=== PATIENT | female | born 1990 | race Hispanic/Latino ===

== ENCOUNTER 2018-07-15 21:29 | Emergency (ER) | payer BC ==
[2018-07-15] MEDS ORDERED: ALBUTEROL 2.5 MG/3 ML NEB SOL ONE (22:36)
[2018-07-15] MEDS ORDERED: IBUPROFEN 400 MG TAB ONE (22:36)
[2018-07-15] MEDS ORDERED: DIPHENHYDRAMINE 12.5MG/5ML LIQ ONE (22:37)
[2018-07-15] MEDS ORDERED: ACETAMINOPHEN 500 MG TAB ONE (22:37)
[2018-07-15] MEDS ORDERED: IPRATROPIUM BROM 0.5MG/2.5ML ONE (22:37)
[2018-07-15] MEDS ORDERED: IBUPROFEN 200 MG TAB PO ONE (22:37)
--- NOTE | 2018-07-16 00:02 | EDPHYS ---
Physician Documentation [facility] Name: Mia Watts Age: 28 yrs Sex: Female : 1990 Arrival Date: 07/15/2018 Time: 21:32 Bed 13 Private MD: ED Physician Timothy Quigley HPI: 07/16 00:08 This 28 yrs old Female presents to ER via Ambulatory with complaints of Sore wa Throat, Productive Cough, Breathing Difficulty. 00:08 The patient presents with sore throat, cough and congestion. The patient describes wa throat pain as achy. Onset: The symptoms/episode began/occurred yesterday. Severity of symptoms: At their worst the symptoms were moderate, in the emergency department the symptoms are unchanged. Modifying factors: The symptoms are alleviated by nothing, the symptoms are aggravated by swallowing, cough. Associated signs and symptoms: Pertinent positives: cough, flu-like symptoms, rhinorrhea, shortness of breath Sore throat Pertinent negatives diarrhea, dysphagia, vomiting. The patient has not experienced similar symptoms in the past. The patient has not recently seen a physician. 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 - Social history:: Smoking status: Patient/guardian denies using tobacco. - Ebola Screening: : Patient denies travel to an Ebola-affected area in the 21 days before illness onset. - Family history:: not pertinent. - Hospitalizations: : No recent hospitalization is reported. ROS: 07/16 00:09 Eyes: Negative for injury, pain, redness, and discharge, Neck: Negative for injury, wa pain, and swelling, Cardiovascular: Negative for chest pain, palpitations, and edema, Abdomen/GI: Negative for abdominal pain, nausea, vomiting, diarrhea, and constipation, Back: Negative for injury and pain, : Negative for injury, bleeding, discharge, and swelling, MS/Extremity: Negative for injury and deformity, Skin: Negative for injury, rash, and discoloration, Neuro: Negative for headache, weakness, numbness, tingling, and seizure. Constitutional: Positive for body aches, chills. ENT: Positive for rhinorrhea, sore throat, Negative for ear pain, hoarseness. Respiratory: Positive for cough, with no reported sputum, shortness of breath, at rest. All other systems are negative. Exam: 00:10 Constitutional: This is a well developed, well nourished patient who is awake, alert, wa and in no acute distress. Head/Face: Normocephalic, atraumatic. Eyes: Pupils equal round and reactive to light, extra-ocular motions intact. Lids and lashes normal. Conjunctiva and sclera are non-icteric and not injected. Cornea within normal limits. Periorbital areas with no swelling, redness, or edema. Neck: Trachea midline, no thyromegaly or masses palpated, and no cervical lymphadenopathy. Supple, full range of motion without nuchal rigidity, or vertebral point tenderness. No Meningismus. Chest/axilla: Normal chest wall appearance and motion. Nontender with no deformity. No lesions are appreciated. Cardiovascular: Regular rate and rhythm with a normal S1 and S2. No gallops, murmurs, or rubs. Normal PMI, no JVD. No pulse deficits. Abdomen/GI: Soft, non-tender, with normal bowel sounds. No distension or tympany. No guarding or rebound. No evidence of tenderness throughout. Back: No spinal tenderness. No costovertebral tenderness. Full range of motion. Skin: Warm, dry with normal turgor. Normal color with no rashes, no lesions, and no evidence of cellulitis. MS/ Extremity: Pulses equal, no cyanosis. Neurovascular intact. Full, normal range of motion. Neuro: Awake and alert, GCS 15, oriented to person, place, time, and situation. Cranial nerves II-XII grossly intact. Motor strength 5/5 in all extremities. Sensory grossly intact. Cerebellar exam normal. Normal gait. Psych: Awake, alert, with orientation to person, place and time. Behavior, mood, and affect are within normal limits. 00:10 ENT: External ear(s): are unremarkable, Nose: noted sniffling. clear drainage, Posterior pharynx: is normal. Vital Signs: 07/15 21:54 BP 113 / 82; Pulse 99; Resp 18; Temp 98.8; Pulse Ox 98% on R/A; Weight 89.36 kg (R); aj1 Height 5 ft. 2 in. (157.48 cm) (R); Pain 0/10; 23:07 BP 102 / 66; Pulse 96; Resp 18; Pulse Ox 99% on R/A; mt 23:48 BP 113 / 62; Pulse 95; Resp 18; Pulse Ox 97% on R/A; mt 07/16 00:01 BP 113 / 62; Pulse 90; Resp 18; Pulse Ox 98% on R/A; ea 07/15 21:54 Body Mass Index 36.03 (89.36 kg, 157.48 cm) aj1 MDM: 07/15 22:08 Patient medically screened. ks 07/16 00:11 Differential diagnosis: pharyngitis, viral syndrome r/o pna. Data reviewed: vital wa signs, nurses notes. Test interpretation: by ED physician or midlevel provider: CXR nml. flu screen negative. Response to treatment: the patient's symptoms have markedly improved after treatment. ED course: improved with ED interventions. will d/c with symptomatic treatment modalities and close f/u with PMD. 07/15 22:26 Order name: Flu ks 07/15 22:26 Order name: Chest Pa And Lat (2 Views) XRAY ks Administered Medications: 07/15 22:36 Drug: Motrin 600 mg Route: PO; ea 23:04 Follow up: Response: No adverse reaction ea 22:36 Drug: Tylenol 1000 mg Route: PO; ea 23:04 Follow up: Response: No adverse reaction 22:36 Drug: Benadryl 12.5 mg Route: PO; ea 23:05 Follow up: Response: No adverse reaction ea 23:03 Drug: Albuterol 2.5 mg Route: Inhalation; ea 23:03 Drug: AtroVENT Aerosol 0.5 mg Route: Inhalation; ea Disposition: 07/16/18 00:01 Discharged to Home. Impression: Acute Viral Upper Respiratory Infection. - Condition is Stable. - Discharge Instructions: Upper Respiratory Infection, Adult, [id number]. - Prescriptions for Albuterol Sulfate 2.5 mg /3 mL (0.083 %) Inhalation Solution for Nebulization - inhale 1 unit by NEBULIZATION route every 8 hours As needed; 1 box. - Medication Reconciliation Form, Thank You Letter, Antibiotic Education, Prescription Opioid Use form. - Follow up: Private Physician; When: 2 - 3 days; Reason: Recheck today's complaints. - Problem is new. - Symptoms have improved. - Notes: take tylenol, motrin and benadryl as needed for your symptoms. use your albuterol via nebulizer for cough and or congestion. see your doctor within 2-3 days if worsenign concerns Signatures: Dispatcher [employer] EDAR Deysi Resendiz RN RN aj1 Dianna Galeano RN RN ea Timothy Quigley MD MD wa Corrections: (The following items were deleted from the chart) 07/16 00:09 00:01 07/16/2018 00:01 Discharged to Home. Impression: Acute Viral Upper Respiratory ea Infection. Condition is Stable. Forms are Medication Reconciliation Form, Thank You Letter, Antibiotic Education, Prescription Opioid Use. Follow up: Private Physician; When: 2 - 3 days; Reason: Recheck today's complaints. Problem is new. Symptoms have improved. wa
--- NOTE | 2018-07-16 00:02 | ER ---
Nurse's Notes [facility] Name: Mia Watts Age: 28 yrs Sex: Female : 1990 Arrival Date: 07/15/2018 Time: 21:32 Bed 13 Private MD: Diagnosis: Acute Viral Upper Respiratory Infection Presentation: 07/15 21:51 Presenting complaint: Patient states: She started sneezing yesterday, and now she has aj1 nasal congestion, sore throat, non-productive and some shortness of breath. Reports generalized body aches, but denies pain otherwise. Denies fever. Transition of care: patient was not received from another setting of care. Onset of symptoms was July 14, 2018. Risk Assessment: Do you want to hurt yourself or someone else? Patient reports no desire to harm self or others. Initial Sepsis Screen: Does the patient meet any 2 criteria? HR > 90 bpm. No. Patient's initial sepsis screen is negative. Does the patient have a suspected source of infection? Yes: Productive cough/pneumonia. Care prior to arrival: None. 21:51 Method Of Arrival: Ambulatory aj 21:51 Acuity: ROMULO 4 aj1 Triage Assessment: 21:54 General: Appears in no apparent distress. uncomfortable, Behavior is calm, cooperative, aj1 appropriate for age. Pain: Denies pain. EENT: Reports nasal congestion nasal discharge sore throat. Neuro: Level of Consciousness is awake, alert, obeys commands. Cardiovascular: Patient's skin is warm and dry. Respiratory: Airway is patent Respiratory effort is even, unlabored, Respiratory pattern is regular, symmetrical. 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 - Social history:: Smoking status: Patient/guardian denies using tobacco. - Ebola Screening: : Patient denies travel to an Ebola-affected area in the 21 days before illness onset. - Family history:: not pertinent. - Hospitalizations: : No recent hospitalization is reported. Screenin:11 Abuse screen: Denies threats or abuse. Nutritional screening: No deficits noted. ea Tuberculosis screening: No symptoms or risk factors identified. Fall Risk None identified. Assessment: 22:09 General: Appears uncomfortable, Behavior is calm, cooperative, appropriate for age. ea Pain: Complains of pain in generalized body pain Quality of pain is described as heavy, Pain began 1 day ago. Neuro: Level of Consciousness is awake, alert, obeys commands, Oriented to person, place, time, situation. Cardiovascular: Heart tones S1 S2 present Patient's skin is warm and dry. Respiratory: Airway is patent Respiratory effort is even, unlabored, Respiratory pattern is regular, symmetrical, Breath sounds are clear bilaterally. Parent/caregiver reports the patient having cough that is non-productive, persistent. GI: No signs and/or symptoms were reported involving the gastrointestinal system. : No signs and/or symptoms were reported regarding the genitourinary system. EENT: Throat is pink Reports nasal congestion. Derm: Skin is pink, warm \T\ dry. 23:30 Reassessment: Patient and/or family updated on plan of care and expected duration. Pain ea level reassessed. Patient is alert, oriented x 3, equal unlabored respirations, skin warm/dry/pink. Patient states symptoms have improved. 07/16 00:08 Reassessment: Patient and/or family updated on plan of care and expected duration. Pain ea level reassessed. Patient is alert, oriented x 3, equal unlabored respirations, skin warm/dry/pink. Discharge instructions given to patient, verbalized the understanding of instructions. Patient states feeling better. Patient states symptoms have improved. Vital Signs: 07/15 21:54 BP 113 / 82; Pulse 99; Resp 18; Temp 98.8; Pulse Ox 98% on R/A; Weight 89.36 kg (R); aj1 Height 5 ft. 2 in. (157.48 cm) (R); Pain 0/10; 23:07 BP 102 / 66; Pulse 96; Resp 18; Pulse Ox 99% on R/A; mt 23:48 BP 113 / 62; Pulse 95; Resp 18; Pulse Ox 97% on R/A; mt 07/16 00:01 BP 113 / 62; Pulse 90; Resp 18; Pulse Ox 98% on R/A; ea 07/15 21:54 Body Mass Index 36.03 (89.36 kg, 157.48 cm) aj1 ED Course: 07/15 21:32 Patient arrived in ED. al2 21:54 Triage completed. aj1 22:07 Dianna Galeano, RN is Primary Nurse. ea 22:08 Timothy Quigley MD is Attending Physician. wa 22:11 Patient has correct armband on for positive identification. Bed in low position. Call ea light in reach. Side rails up X 1. 22:11 Arm band placed on right wrist. Patient placed in an exam room, on a stretcher, on ea pulse oximetry. 22:43 X-ray completed. Patient tolerated procedure well. bb2 22:44 Chest Pa And Lat (2 Views) XRAY In Process Unspecified. EDMS 07/16 00:00 No provider procedures requiring assistance completed. Patient did not have IV access ea during this emergency room visit. Administered Medications: 07/15 22:36 Drug: Motrin 600 mg Route: PO; ea 23:04 Follow up: Response: No adverse reaction ea 22:36 Drug: Tylenol 1000 mg Route: PO; ea 23:04 Follow up: Response: No adverse reaction ea 22:36 Drug: Benadryl 12.5 mg Route: PO; ea 23:05 Follow up: Response: No adverse reaction ea 23:03 Drug: Albuterol 2.5 mg Route: Inhalation; ea 23:03 Drug: AtroVENT Aerosol 0.5 mg Route: Inhalation; ea Outcome: 07/16 00:01 Discharge ordered by . wv 00:09 Discharged to home ambulatory. ea 00:09 Condition: improved 00:09 Discharge instructions given to patient, Instructed on discharge instructions, follow up and referral plans. medication usage, Demonstrated understanding of instructions, follow-up care, medications, Prescriptions given X 1. 00:09 Patient left the ED. ea Signatures: Dispatcher [employer] EDMS Deysi Resendiz, MARIA ALEJANDRA RN Anabel Hung mt, Elena, RN Timothy Rivas ea, MD MD wa Bock, Brittany bb2 Love, Angelica al2
--- NOTE | 2018-07-16 08:20 | RAD REPORT ---
EXAM DESCRIPTION: RAD - Chest Pa And Lat (2 Views) - 07/15/2018 10:47 pm CLINICAL HISTORY: Cough, sore throat, intermittent shortness of breath COMPARISON: None. TECHNIQUE: PA and lateral views of the chest were obtained. FINDINGS: The lungs are clear of a consolidation or mass. Interstitial markings are prominent, more so in the left base. Baseline for the patient is unknown. No peribronchial thickening. Heart size is normal and central vasculature is within normal limits. No pleural effusion or pneu mothorax seen. No acute bony finding noted. No aortic abnormality. IMPRESSION: Baseline examination suspicious for left lung base interstitial pneumonia.
== END 2018-07-16 00:09 | disposition home or self-care (01) ==
LOC: ER 21:29
DX: J06.9 Acute upper respiratory infection, unspecified (principal); E03.9 Hypothyroidism, unspecified
CPT/HCPCS: 71046; 87804; 99284

== ENCOUNTER 2019-11-28 16:04 | Emergency (ER) | payer BC ==
--- OUTSIDE RECORDS SUMMARY | 2019-11-28 16:06 | XMS REPORT ---
:1990 [facility] Address [address] [place] [address] Dr. Donald [address] [place] [id number] Care Team Providers Name Role Phone Unavailable Unavailable Unavailable Problems This patient has no known problems. Allergies, Adverse Reactions, Alerts This patient has no known allergies or adverse reactions. Medications This patient has no known medications.
--- OUTSIDE RECORDS SUMMARY | 2019-11-28 16:07 | XMS REPORT | Summary of Care ---
:1990 Author Organization [facility] Address [address] [place] [address] Care Team Providers Name Role Phone Karlene Morris MD Primary Care Provider Encounter Details Date Type Department Care Team Description 11/25/2019 Patient Secure [facility] Pediatric Karlene Morris and Adult Primary MD [facility]- [address] [place] [address] , [facility] [address] [place] [address] [place] [phone] [address] [phone] Allergies No Known Allergiesdocumented as of this encounter (statuses as of 11/25/2019) Medications Medication Sig Dispensed Refills Start Date End Date Status montelukast 10 mg Take 1 tablet by 90 tablet 3 04/06/2019 Active tabletIndications: mouth at Dermatographism, CRP bedtime. elevated cholestyramine 4 gram Take 1 Packet by 120 Packet 3 04/21/2019 Active powderIndications: mouth 4 (four) Dermatographism, times daily. 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 tabletIndications: Acquired hypothyroidism documented as of this encounter (statuses as of 11/25/2019) Active Problems Problem Noted Date Pain in joint, multiple sites 05/06/2018 Fatigue, unspecified type 05/06/2018 CRP elevated 05/06/2018 Immunization counseling 05/06/2018 Sleep disturbance 05/06/2018 Acquired hypothyroidism Overview: 2014, dx after of 2nd son. documented as of this encounter (statuses as of 11/25/2019) Immunizations Name Administration Dates Next Due Influenza Virus Vaccine 08/18/2018, 08/18/2017 documented as of this encounter Social History Tobacco Use Types Packs/Day Years Used Date Never Smoker Smokeless Tobacco: Never Used Alcohol Use Drinks/Week oz/Week Comments No Sex Assigned at Date Recorded Not on file Job Start Date Occupation Industry Not on file Not on file Not on file Travel History Travel Start Travel End No recent travel history available. documented as of this encounter Last Filed Vital Signs Not on filedocumented in this encounter Plan of Treatment Date Type Specialty Care Team Description 12/01/2019 Office Visit Family Medicine Rashaad Cooley MD [address] [place] [address] [address] [place], [place] [address] 12/14/2019 Office Visit Obstetrics & Gynecology Irais Drummond MD [address] [place] [address] [address] [place], [place] [address] 12/14/2019 Office Visit Internal Medicine Karlene Morris MD [address] [place] [address] [address] [place], [place] [address] Health Maintenance Due Date Last Done Comments VARICELLA VACCINES (1 of 2 - 1989 2-dose childhood series) DTaP,Tdap,and Td Vaccines (1 1999 - Tdap) INFLUENZA VACCINE (#1) 2019 08/18/2018, 08/18/2017 PAP SMEAR 11/26/2021 11/26/2018, 01/24/2016 (Previously completed) PNEUMOCOCCAL 0-64 YEARS Aged Out No longer eligible based COMBINED SERIES on patient's age to complete this topic documented as of this encounter Results Not on filedocumented in this encounter Insurance Payer Benefit Plan Subscriber ID Effective Dates Phone Address Type / Group [facility] [id number] 2018-Saida [phone] [address] PPO/POS [place] - OUT OF t 7 [id number] [place] [address] documented as of this encounter
--- OUTSIDE RECORDS SUMMARY | 2019-11-28 16:07 | XMS REPORT | Summary of Care ---
:1990 Author Organization [facility] - [facility] Address [address] [place] [address] Care Team Providers Name Role Phone Karlene Morris MD Primary Care Provider Reason for Visit Reason Comments Refill Request Encounter Details Date Type Department Care Team Description 05/26/[address] [facility] Pediatric and Karlene Morris, Refill Request Adult Primary Care- MD Tony [address] [place] [address] [address] [facility], [address] [place] [address] [place] [address] Allergies No Known Allergiesdocumented as of this encounter (statuses as of 05/26/2019) Medications Medication Sig Dispensed Refills Start Date End Date Status montelukast 10 mg Take 1 tablet 90 tablet 3 04/06/2019 Active tabletIndications: by mouth at Dermatographism, CRP bedtime. elevated cholestyramine 4 Take 1 Packet 120 Packet 3 04/21/2019 Active gram by mouth 4 powderIndications: (four) times Dermatographism, daily. 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 Acquired hypothyroidism documented as of this encounter (statuses as of 05/26/2019) Active Problems Problem Noted Date Pain in joint, multiple sites 05/06/2018 Fatigue, unspecified type 05/06/2018 CRP elevated 05/06/2018 Immunization counseling 05/06/2018 Sleep disturbance 05/06/2018 Acquired hypothyroidism Overview: 2014, dx after of 2nd son. documented as of this encounter (statuses as of 05/26/2019) Immunizations Name Administration Dates Next Due Influenza [...] Treatment Date Type Specialty Care Team Description 06/11/2019 Office Visit Internal Medicine Karlene Morris MD [address] [place] [address] Dr [address] [place] [address] [phone] 12/14/2019 Office Visit Obstetrics & Gynecology Irais Drummond MD [address] [place] [address] [address] [place] [address] [phone] Health Maintenance Due Date Last Done Comments VARICELLA VACCINES (1 of 2 - 2001 13+ 2-dose series) INFLUENZA VACCINE 06/14/2019 08/18/2018, 08/18/2017 DTaP,Tdap,and Td Vaccines (1 11/19/2019 Postponed from 2007 - Tdap) (Insurance / Financial) PAP SMEAR 11/26/2021 11/26/2018, 01/24/2016 (Previously completed) PNEUMOCOCCAL 0-64 YEARS Aged Out No longer eligible based COMBINED SERIES on patient's age to complete this topic documented as of this encounter Results Not on filedocumented in this encounter Visit Diagnoses Diagnosis Acquired hypothyroidism Unspecified hypothyroidism documented in this encounter Insurance Payer Benefit Plan Subscriber ID Effective Dates Phone Address Type / Group [facility] [id number] 2018-Saida [phone] [address] PPO/POS [place] - OUT OF t 7 [id number] [place] [address] documented as of this encounter
--- OUTSIDE RECORDS SUMMARY | 2019-11-28 16:07 | XMS REPORT | Summary of Care ---
:[address] [facility] Address [address] [place] [address] Care Team Providers Name Role Phone Karlene Morris MD Primary Care Provider Encounter Details Date Type Department Care Team Description 11/25/2019 Patient Secure [facility] Pediatric Karlene Morris and Adult Primary MD [facility]- [address] [place] [address] , [facility] [address] [place] [address] [place] [phone] [address] [phone] Allergies No Known Allergiesdocumented as of this [...] unspecified type, CRP elevated, Hives Thyroid, Pork, (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 [place], [place] [address] 12/14/2019 Office Visit Internal Medicine Karlene Morris MD [address] [place] [address] Dr Thapa [address] [place] [address] [phone] Health Maintenance Due Date Last Done Comments [...] Effective Dates Phone Address Type / Group [facility] [id number] 2018-Saida [phone] [address] PPO/POS [place] - OUT OF t 7 [id number] [place] [address] documented as of this encounter
--- NOTE | 2019-11-28 17:05 | EDPHYS ---
Physician Documentation [facility] Name: Mia Watts Age: 29 yrs Sex: Female : 1990 Arrival Date: 11/28/2019 Time: 16:06 Bed 19 Private MD: ED Physician Carlos Magana HPI: 11/28 16:31 This 29 yrs old Female presents to ER via Ambulatory with complaints of Flu snw Symptoms. 16:31 Onset: The symptoms/episode began/occurred suddenly, today. Associated signs and snw symptoms: Pertinent negatives: abdominal pain, shortness of breath, wheezing. Modifying factors: The patient symptoms are alleviated by nothing. The patient has not experienced similar symptoms in the past. The patient has not recently seen a physician. s/s started today . 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 tw2 Historical: - Allergies: 16:25 No Known Allergies; ss - Home Meds: 16:25 [place] Thyroid Oral [Active]; ss - PMHx: 16:25 Hypothyroidism; Sleep Apnea; ss - PSHx: 16:25 None; ss - Immunization history:: Adult Immunizations up to date. - Coronavirus screen:: The patient has NOT traveled to [place] in the past 14 days. Proceed with normal triage process as indicated. - Social history:: Smoking status: Patient denies any tobacco usage or history of. - Ebola Screening: : Patient denies exposure to infectious person Patient denies travel to an Ebola-affected area in the 21 days before illness onset. ROS: 16:30 Eyes: Negative for injury, pain, redness, and discharge, ENT: Negative for injury, snw pain, and discharge, Neck: Negative for injury, pain, and swelling, Cardiovascular: Negative for chest pain, palpitations, and edema, Respiratory: Negative for shortness of breath, cough, wheezing, and pleuritic chest pain, Abdomen/GI: Negative for abdominal pain, nausea, vomiting, diarrhea, and constipation, Back: Negative for injury and pain, : Negative for injury, bleeding, discharge, and swelling, MS/Extremity: Negative for injury and deformity, Skin: Negative for injury, rash, and discoloration, Neuro: Negative for headache, weakness, numbness, tingling, and seizure, Psych: Negative for depression, anxiety, suicide ideation, homicidal ideation, and hallucinations. 16:30 Constitutional: Positive for body aches, chills, fatigue, malaise. Exam: 16:29 Head/Face: Normocephalic, atraumatic. Eyes: Pupils equal round and reactive to light, snw extra-ocular motions intact. Lids and lashes normal. Conjunctiva and sclera are non-icteric and not injected. Cornea within normal limits. Periorbital areas with no swelling, redness, or edema. Neck: Trachea midline, no thyromegaly or masses palpated, and no cervical lymphadenopathy. Supple, full range of motion without nuchal rigidity, or vertebral point tenderness. No Meningismus. Chest/axilla: Normal chest wall appearance and motion. Nontender with no deformity. No lesions are appreciated. Cardiovascular: Regular rate and rhythm with a normal S1 and S2. No gallops, murmurs, or rubs. Normal PMI, no JVD. No pulse deficits. Respiratory: Lungs have equal breath sounds bilaterally, clear to auscultation and percussion. No rales, rhonchi or wheezes noted. No increased work of breathing, no retractions or nasal flaring. Abdomen/GI: Soft, non-tender, with normal bowel sounds. No distension or tympany. No guarding or rebound. No evidence of tenderness throughout. Back: No spinal tenderness. No costovertebral tenderness. Full range of motion. Skin: Warm, dry with normal turgor. Normal color with no rashes, no lesions, and no evidence of cellulitis. MS/ Extremity: Pulses equal, no cyanosis. Neurovascular intact. Full, normal range of motion. Neuro: Awake and alert, GCS 15, oriented to person, place, time, and situation. Cranial nerves II-XII grossly intact. Motor strength 5/5 in all extremities. Sensory grossly intact. Cerebellar exam normal. Normal gait. Psych: Awake, alert, with orientation to person, place and time. Behavior, mood, and affect are within normal limits. 16:29 Constitutional: The patient appears alert, awake, uncomfortable. 16:29 ENT: External ear(s): no acute changes, Ear canal(s): are normal, TM's: are normal, Nose: Nasal mucosa: edematous, Mouth: is normal, Posterior pharynx: is normal, Voice: is normal. Vital Signs: 16:22 BP 117 / 75; Pulse 83; Resp 15; Temp 98.3(TE); Pulse Ox 100% on R/A; Weight 91.17 kg; ss Height 5 ft. 2 in. (157.48 cm); Pain 6/10; 16:22 Body Mass Index 36.76 (91.17 kg, 157.48 cm) ss MDM: 16:22 Patient medically screened. snw 17:07 Data reviewed: vital signs, nurses notes. Data interpreted: Pulse oximetry: on room air snw is 100 %. Interpretation: normal. Counseling: I had a detailed discussion with the patient and/or guardian regarding: the historical points, exam findings, and any diagnostic results supporting the discharge/admit diagnosis, lab results, to return to the emergency department if symptoms worsen or persist or if there are any questions or concerns that arise at home. Special discussion: Based on the history and exam findings, there is no indication for further emergent testing or inpatient evaluation. I discussed with the patient/guardian the need to see the primary care provider for further evaluation of the symptoms. 11/28 16:32 Order name: Flu snw 11/28 16:32 Order name: Strep snw 11/28 17:01 Order name: Influenza Screen (A ; Complete Time: 17:01 EDMS 11/28 17:01 Order name: Group A Streptococcus Rapid Sc; Complete Time: 17:01 EDMS Administered Medications: No medications were administered Disposition: 11/28/19 17:03 Discharged to Home. Impression: Acute upper respiratory infection, unspecified. - Condition is Stable. - Discharge Instructions: Viral Respiratory Infection, Cool Mist Vaporizer. - Prescriptions for orphenadrine citrate 100 mg Oral Tablet Sustained Release - take 1 tablet by ORAL route 2 times per day As needed; 20 tablet. promethazine 25 mg Oral Tablet - take 1 tablet by ORAL route every 6 hours As needed; 20 tablet. - Medication Reconciliation Form, Thank You Letter, Antibiotic Education, Prescription Opioid Use, Work release form form. - Follow up: Emergency Department; When: As needed; Reason: Worsening of condition. Follow up: Private Physician; When: 2 - 3 days; Reason: Wound Recheck, If symptoms return, Continuance of care. Addendum: 11/30/2019 08:24 Co-signature as Attending Physician, Carlos Magana MD I agree with the assessment and c olvera plan of care. Signatures: Dispatcher [employer] Carlos Portillo MD MD cha Therrien, Shelly, OVERNIGHT CASHIER-C OVERNIGHT CASHIER-Csnw Tanisha Melgar, MARIA ALEJANDRA RN ss Corrections: (The following items were deleted from the chart) 11/28 17:13 17:03 11/28/2019 17:03 Discharged to Home. Impression: Acute upper respiratory ss infection, unspecified. Condition is Stable. Forms are Medication Reconciliation Form, Thank You Letter, Antibiotic Education, Prescription Opioid Use. Follow up: Emergency Department; When: As needed; Reason: Worsening of condition. Follow up: Private Physician; When: 2 - 3 days; Reason: Wound Recheck, If symptoms return, Continuance of care. snw
--- NOTE | 2019-11-28 17:05 | ER ---
Nurse's Notes [facility] Name: Mia Wtats Age: 29 yrs Sex: Female : 1990 Arrival Date: 11/28/2019 Time: 16:06 Bed 19 Private MD: Diagnosis: Acute upper respiratory infection, unspecified Presentation: 11/28 16:22 Presenting complaint: Patient states: "bad allergies" x 1 week. Nasal congestion and ss sore throat that began this morning. Chills and body aches that began this afternoon. Transition of care: patient was not received from another setting of care. Onset of symptoms was November 23, 2019. Risk Assessment: Do you want to hurt yourself or someone else? Patient reports no desire to harm self or others. Initial Sepsis Screen: Does the patient meet any 2 criteria? No. Patient's initial sepsis screen is negative. Does the patient have a suspected source of infection? No. Patient's initial sepsis screen is negative. Care prior to arrival: None. 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 tw2 Historical: - Allergies: 16:25 No Known Allergies; ss - Home Meds: 16:25 [place] Thyroid Oral [Active]; ss - PMHx: 16:25 Hypothyroidism; Sleep Apnea; ss - PSHx: 16:25 None; ss - Immunization history:: Adult Immunizations up to date. - Coronavirus screen:: The patient has NOT traveled to [place] in the past 14 days. Proceed with normal triage process as indicated. - Social history:: Smoking status: Patient denies any tobacco usage or history of. - Ebola Screening: : Patient denies exposure to infectious person Patient denies travel to an Ebola-affected area in the 21 days before illness onset. Screenin:20 Abuse screen: Denies threats or abuse. Nutritional screening: No deficits noted. tw2 Tuberculosis screening: No symptoms or risk factors identified. Fall Risk None identified. Assessment: 16:20 General: Appears in no apparent distress. well groomed. Pain: Denies pain. Neuro: Level tw2 of Consciousness is awake, alert, obeys commands, Oriented to person, place, time, situation. Cardiovascular: Capillary refill < 3 seconds Patient's skin is warm and dry. Respiratory: Airway is patent Respiratory effort is even, unlabored, Respiratory pattern is regular, symmetrical. GI: No signs and/or symptoms were reported involving the gastrointestinal system. : No signs and/or symptoms were reported regarding the genitourinary system. EENT: Reports nasal congestion nasal discharge. Derm: No signs and/or symptoms reported regarding the dermatologic system. Musculoskeletal: Range of motion: intact in all extremities, "body aches". 16:25 Reassessment: provider at bedside at this time. tw2 17:12 Reassessment: Patient appears in no apparent distress at this time. No changes from tw2 previously documented assessment. Patient and/or family updated on plan of care and expected duration. Pain level reassessed. Patient is alert, oriented x 3, equal unlabored respirations, skin warm/dry/pink. Vital Signs: 16:22 BP 117 / 75; Pulse 83; Resp 15; Temp 98.3(TE); Pulse Ox 100% on R/A; Weight 91.17 kg; ss Height 5 ft. 2 in. (157.48 cm); Pain 6/10; 16:22 Body Mass Index 36.76 (91.17 kg, 157.48 cm) ED Course: 16:06 Patient arrived in ED. rg4 16:17 Zahira Torres F[facility]-C [facility]. snw 16:17 Carlos Magana MD is Attending Physician. snw 16:20 Bed in low position. Call light in reach. Adult w/ patient. tw2 16:22 Arm band placed on right wrist. 16:24 Triage completed. 16:25 Kari Liu, RN is Primary Nurse. tw2 17:13 No provider procedures requiring assistance completed. Patient did not have IV access tw2 during this emergency room visit. Administered Medications: No medications were administered Outcome: 17:03 Discharge ordered by . snw 17:13 Patient left the ED. ss 17:13 Discharged to home ambulatory, with significant other. tw2 17:13 Condition: stable 17:13 Discharge instructions given to patient, significant other, Instructed on discharge instructions, follow up and referral plans. no drinking with medication, no driving heavy equipment, medication usage, Demonstrated understanding of instructions, follow-up care, medications, Prescriptions given X 2. Signatures: Zahira Torres FNP-C COMMUNICATIONS ADMINISTRATOR-Csnw Tanisha Melgar, RN RN ss Kari Liu, RN RN tw2 Malathi Pichardo 4
== END 2019-11-28 17:13 | disposition home or self-care (01) ==
LOC: ER 16:04
DX: J06.9 Acute upper respiratory infection, unspecified (principal); E03.9 Hypothyroidism, unspecified
CPT/HCPCS: 87070; 87081; 87804; 99282